=== PATIENT | female | born 1990 | race Caucasian/White ===

== ENCOUNTER 2024-04-18 07:22 | Emergency (ER) | payer OTHER ==
[~2024-04-18] VITALS: Ht 162.6 cm; Wt 65.8 kg
[2024-04-18] MEDS ORDERED: CYCL10 PO (07:48)
[2024-04-18 07:49] VITALS: BP 137/100
[2024-04-18] MEDS ORDERED: Cyclobenzaprine HCl 10 MG Tab PO ONE (07:50)
== END 2024-04-18 07:57 | disposition home or self-care (01) ==
LOC: ER 07:22
DX: M54.2 Cervicalgia (principal)
CPT/HCPCS: 99282; A9270